=== PATIENT | female | born 1990 | race Caucasian/White ===

== ENCOUNTER 2016-11-08 10:15 | Inpatient (IN) | payer BC ==
[~2016-11-08] VITALS: Ht 162.6 cm; Wt 80.5 kg
[2016-11-08 11:09] LABS: AMNI OBC PASS; AMNISURE POSITIVE (NEGATIVE)
[2016-11-08] MEDS ORDERED: OXYTOCIN 30U/ 0.9% NaCL 500ML 500 ML IV PRN (11:17)
[2016-11-08] MEDS ORDERED: OXYTOCIN 30U/ 0.9% NaCL 500ML 500 ML IV ONE (11:17)
[2016-11-08] MEDS ORDERED: FENTANYL PF 100 MCG/2ML IV PRN (11:30)
[2016-11-08] MEDS ORDERED: CALCIUM CARBONATE 500 MG TAB.CHEW PO PRN (11:30)
[2016-11-08] MEDS ORDERED: TERBUTALINE 1 MG/ML, 1ML IVPush PRN ×2 (11:30)
[2016-11-08] MEDS ORDERED: FENTANYL PF 100 MCG/2ML IVPush PRN (11:30)
[2016-11-08] MEDS ORDERED: ONDANSETRON 2MG/ML, 2ML IVPush PRN (11:30)
[2016-11-08 11:50] VITALS: BP 111/77
[2016-11-08] MEDS ORDERED: NEWBORN KIT ONE (11:51)
[2016-11-08] MEDS ORDERED: DIPH,PERTUSS(ACELL),TET VAC/PF NC IM-VACC ONE ×2 (12:26→12:30)
[2016-11-08] MEDS ORDERED: OXYTOCIN 30U/ 0.9% NaCL 500ML 500 ML ONE (12:50)
[2016-11-08] MEDS: LACTATED RINGERS 1,000 ML IV SCH ×3 (12:58→21:19)
[2016-11-08] MEDS ORDERED: FENTANYL PF 100 MCG/2ML ONE (14:12)
[2016-11-08] MEDS ORDERED: FENTANYL/BUPIV./NS/PF 250 ML EPIDCONT ONE (15:59)
[2016-11-08] MEDS ORDERED: FENTANYL/BUPIV./NS/PF 250 ML EPIDCONT SCH (16:41)
[2016-11-08] MEDS ORDERED: EPHEDRINE 50 MG/ML, 1ML IVPush PRN (17:00)
[2016-11-08] MEDS ORDERED: NALOXONE 0.4 MG/ML, 1ML IVPush PRN (17:00)
[2016-11-08] MEDS ORDERED: LACTATED RINGERS 1,000 ML IVBOLUS PRN (17:00)
[2016-11-09] MEDS ORDERED: MISOPROSTOL 200 MCG TABLET ONE (01:09)
[2016-11-09] MEDS: LACTATED RINGERS 1,000 ML IV SCH ×5 (01:31→21:00)
[2016-11-09] MEDS: OXYTOCIN 30U/ 0.9% NaCL 500ML 500 ML IV SCH ×7 (07:02→17:02)
[2016-11-09] MEDS ORDERED: HYDROcodone/APAP 5/325 TABLET PO PRN ×2 (07:30)
[2016-11-09] MEDS ORDERED: CALCIUM CARBONATE 500 MG TAB.CHEW PO PRN (07:30)
[2016-11-09] MEDS ORDERED: ONDANSETRON 2MG/ML, 2ML IV PRN (07:30)
[2016-11-09] MEDS ORDERED: ACETAMINOPHEN 325 MG TABLET PO PRN ×2 (07:30)
[2016-11-09] MEDS ORDERED: MISOPROSTOL 200 MCG TABLET PR PRN (07:30)
[2016-11-09] MEDS ORDERED: BISACODYL 10 MG SUPP PR PRN (07:30)
[2016-11-09] MEDS: PRENATAL VIT/IRON/FA 1 EACH TABLET PO SCH (09:00)
[2016-11-09 11:27] VITALS: BP 112/77
[2016-11-09] MEDS: IBUPROFEN 600 MG TABLET PO PRN ×2 (14:55→21:16)
[2016-11-09 15:09] VITALS: BP 122/83
[2016-11-09 21:10] VITALS: BP 126/83
[2016-11-09] MEDS: DOCUSATE 100 MG CAPSULE PO PRN (21:16)
[2016-11-10 01:00] VITALS: BP 119/72
[2016-11-10] MEDS ORDERED: IBUP-1222 PO (02:48)
[2016-11-10] MEDS ORDERED: DOCU-30 PO (02:50)
[2016-11-10] MEDS: OXYTOCIN 30U/ 0.9% NaCL 500ML 500 ML IV SCH (03:02)
[2016-11-10] MEDS: LACTATED RINGERS 1,000 ML IV SCH (05:00)
[2016-11-10] MEDS: IBUPROFEN 600 MG TABLET PO PRN (06:21)
[2016-11-10 08:30] VITALS: BP_SYST 95; BP_SYST 97; BP_DIAS 58; BP_DIAS 60
[2016-11-10] MEDS: PRENATAL VIT/IRON/FA 1 EACH TABLET PO SCH (09:38)
[2016-11-10] MEDS: DOCUSATE 100 MG CAPSULE PO PRN (09:38)
== END 2016-11-10 13:00 | disposition home or self-care (01) | DRG 775 ==
LOC: LDOP 10:15 → LDIP 11:20 → 2NW 11-09 11:06
PROVIDERS: ADMIT Obstetrics & Gynecology; ATTEND Obstetrics & Gynecology
PROC: 10E0XZZ Delivery of Products of Conception, External Approach (ICD-10-PCS; principal; 2016-11-09)
PROC: 0KQM0ZZ Repair Perineum Muscle, Open Approach (ICD-10-PCS; 2016-11-09)
PROC: 3E033VJ Introduction of Other Hormone into Peripheral Vein, Percutaneous Approach (ICD-10-PCS; 2016-11-09)
PROC: 00HU33Z Insertion of Infusion Device into Spinal Canal, Percutaneous Approach (ICD-10-PCS; 2016-11-09)
PROC: 3E0R3CZ (ICD-10-PCS; 2016-11-09)
PROC: 10907ZC Drainage of Amniotic Fluid, Therapeutic from Products of Conception, Via Natural or Artificial Opening (ICD-10-PCS; 2016-11-09)
DX: O42.02 Full-term premature rupture of membranes, onset of labor within 24 hours of rupture (principal); Z37.0 Single live birth; Z3A.38 38 weeks gestation of pregnancy; O66.0 Obstructed labor due to shoulder dystocia; O76 Abnormality in fetal heart rate and rhythm complicating labor and delivery; O69.81X0 Labor and delivery complicated by cord around neck, without compression, not applicable or unspecified; Z23 Encounter for immunization; O70.1 Second degree perineal laceration during delivery
CPT/HCPCS: 36415; 82803; 84112; 85025; 86850; 86900; 90715; J3010; J2590; J7120